=== PATIENT | male | born 1985 | race Caucasian/White ===

== ENCOUNTER 2019-08-13 21:47 | Emergency (ER) | payer MEDICAID, OTHER ==
[~2019-08-13] VITALS: Ht 175.3 cm; Wt 108.9 kg
[2019-08-13 21:50] VITALS: BP 151/80
--- NOTE | 2019-08-13 21:50 | NUR ---
TO BED # 02 AMBULATORY
--- NOTE | 2019-08-13 22:06 | NUR ---
Dr. Desir examining patient.
[2019-08-13] MEDS ORDERED: KETOROLAC 60 MG/2 ML VIAL IM ONE (22:10)
--- NOTE | 2019-08-13 22:17 | NUR ---
MEDICATED WITH IM TORADOL 60 MG FOR 7/10 NECK PAIN. WILL REASSESS IN 20 MINS.
--- NOTE | 2019-08-13 22:18 | NUR ---
C/O 34 YO M PRESENTS TO ED C/O 03/09 SHARP/PRESSURE LIKE RIGHT SIDE NECK PAIN STARTING THIS MORNING AFTER WAKING UP. PT ALSO STATES "I FELT A BUMP ON THE SIDE OF MY NECK WHEN I WAS RUBBING IT". DENIES RECENT TRAUMA/INJURY. DENIES RECENT ILLNESS. SMALL, SOFT, MOVEABLE LUMP NOTED BENEATH SKIN ON RIGHT SIDE NECK. REPORTS TENDERNESS TO TOUCH. PMH-- DENIES RX-- DENIES
--- NOTE | 2019-08-13 22:44 | NUR ---
REPORTS PAIN RELIEF; 2/10. TORADOL EFFECTIVE.
[2019-08-13 22:45] VITALS: BP 151/80
== END 2019-08-13 22:45 | disposition home or self-care (01) ==
LOC: MED 21:47
DX: I88.9 Nonspecific lymphadenitis, unspecified (principal); F17.210 Nicotine dependence, cigarettes, uncomplicated
CPT/HCPCS: 96372; 99283; J1885

== ENCOUNTER 2020-05-27 13:00 | Emergency (ER) | payer MEDICAID, OTHER ==
[~2020-05-27] VITALS: Ht 180.3 cm; Wt 108.9 kg
[2020-05-27 13:05] VITALS: BP 152/108
[2020-05-27] MEDS ORDERED: LIDOCAINE MPF 1% 10 MG/ML VIAL INJ ONE (13:10)
[2020-05-27] MEDS ORDERED: BACITRACIN OINT 500 UNITS/GM PKT TP ONE (13:50)
[2020-05-27 14:07] VITALS: BP 142/90
== END 2020-05-27 14:07 | disposition home or self-care (01) ==
LOC: MED 13:00
DX: S61.210A Laceration without foreign body of right index finger without damage to nail, initial encounter (principal); W25.XXXA Contact with sharp glass, initial encounter; Y93.89 Activity, other specified; Y92.89 Other specified places as the place of occurrence of the external cause; Y99.8 Other external cause status
CPT/HCPCS: 12001; 90471; 90715; 99283; J2001